=== PATIENT | female | born 1955 | race African-American/Black ===

== ENCOUNTER 2017-11-24 12:39 | Outpatient (CLI) | payer BC ==
--- NOTE | 2017-11-24 14:12 | MMO ---
BILATERAL SCREENING MAMMOGRAM: History: 62-year-old female for screening mammography. Comparison: 06-25-16, 10-12-09 FINDINGS: Bilateral MLO and CC view of the breasts show predominately fatty replaced breast parenchyma. There i s a stable nodularity in the upper outer right breast which may represent an intermamillary lymph nod e. There is no evidence of suspicious mass, suspicious cluster of microcalcifications, or area of arc hitectural distortion. This study is interpreted with the assistance of computer aided detection. IMPRESSION: BIRADS category 2 - benign findings. Annual screening mammography is recommended. POS: [facility]
== END 2017-11-24 12:40 | disposition home or self-care (01) ==
LOC: SCSMAMMO 12:39
PROVIDERS: ATTEND Family Medicine
DX: Z12.31 Encounter for screening mammogram for malignant neoplasm of breast (principal)
CPT/HCPCS: 77067

== ENCOUNTER 2018-07-09 13:04 | Outpatient (CLI) | payer BC ==
--- NOTE | 2018-07-09 14:51 | RAD ---
RIGHT KNEE FOUR VIEWS: History: Posterior right knee pain. FINDINGS: Degenerative changes are seen manifested by osteophyte formation and joint space narrowing, predomina tely in the medial femoral and patellar femoral compartments. No fracture, dislocation, or bony destruction is identified. IMPRESSION: Right knee osteoarthritis. POS: [facility]
--- NOTE | 2018-07-09 14:56 | RAD ---
LEFT KNEE FOUR VIEWS: History: Left knee pain. FINDINGS: There are mild degenerative changes in the left knee. No fracture, dislocation, or bony destruction i s seen. IMPRESSION: Mild left knee osteoarthritis. POS: [facility]
== END 2018-07-09 13:05 | disposition home or self-care (01) ==
LOC: RAD 13:04
PROVIDERS: ATTEND Family Medicine
DX: M25.561 Pain in right knee (principal); M25.562 Pain in left knee; M17.0 Bilateral primary osteoarthritis of knee

== ENCOUNTER 2018-12-03 12:52 | Outpatient (CLI) | payer BC ==
--- NOTE | 2018-12-03 14:56 | MMO ---
Bilateral MAMMO Bilat Screen [facility]. CLINICAL HISTORY: Patient is 63 years old and is seen for screening. The patient has the following family history of breast cancer: aunt and cousin female. The patient has no personal history of cancer. VIEWS: The views performed were: bilateral craniocaudal and bilateral mediolateral oblique. FILMS COMPARED: The present examination has been compared to prior imaging studies performed at [facility] on 10/12/2009, 06/25/2016 and 11/24/2017. This study has been interpreted with the assistance of computer-aided detection. MAMMOGRAM FINDINGS: The breasts are almost entirely fat. There is a stable intramammary lymph node seen in the right breast. There are no suspicious masses, suspicious calcifications, or new areas of architectural distortion. IMPRESSION: THERE IS NO MAMMOGRAPHIC EVIDENCE OF MALIGNANCY. A ROUTINE FOLLOW-UP MAMMOGRAM IN 1 YEAR IS RECOMMENDED. ACR BI-RADS Category 2 - Benign finding MAMMOGRAPHY NOTE: 1. A negative mammogram report should not delay a biopsy if a dominant of clinically suspicious mass is present. 2. Approximately 10% to 15% of breast cancers are not detected by mammography. 3. Adenosis and dense breasts may obscure an underlying neoplasm.
== END 2018-12-03 12:53 | disposition home or self-care (01) ==
LOC: SCSMAMMO 12:52
PROVIDERS: ATTEND Family Medicine
DX: Z12.31 Encounter for screening mammogram for malignant neoplasm of breast (principal); Z80.3 Family history of malignant neoplasm of breast
CPT/HCPCS: 77067

== ENCOUNTER 2020-05-01 08:22 | Outpatient (CLI) | payer MEDICARE | END 2020-05-01 08:23 | disposition home or self-care (01) | LOC: DTY/OP 08:22 | PROVIDERS: ATTEND Specialist | DX: Z01.818 Encounter for other preprocedural examination (principal); E66.01 Morbid (severe) obesity due to excess calories | CPT/HCPCS: 97802 ==

== ENCOUNTER 2020-05-26 13:43 | Outpatient (CLI) | payer MEDICARE ==
--- NOTE | 2020-05-26 14:08 | MMO ---
Bilateral MAMMO Bilat Screen [facility]. CLINICAL HISTORY: Patient is 65 years old and is seen for screening. The patient has the following family history of breast cancer: aunt and cousin female. The patient has no personal history of cancer. VIEWS: The views performed were: bilateral craniocaudal with tomosynthesis and bilateral mediolateral oblique with tomosynthesis. FILMS COMPARED: The present examination has been compared to prior imaging studies performed at [facility] on 10/12/2009, 06/25/2016, 11/24/2017 and 12/03/2018. This study has been interpreted with the assistance of computer-aided detection. MAMMOGRAM FINDINGS: There are scattered fibroglandular densities. There is a stable intramammary lymph node seen in the right breast. There are no suspicious masses, suspicious calcifications, or new areas of architectural distortion. IMPRESSION: THERE IS NO MAMMOGRAPHIC EVIDENCE OF MALIGNANCY. A ROUTINE FOLLOW-UP MAMMOGRAM IN 1 YEAR IS RECOMMENDED. THE RESULTS OF THIS EXAM WERE SENT TO THE PATIENT. ACR BI-RADS Category 2 - Benign finding MAMMOGRAPHY NOTE: 1. A negative mammogram report should not delay a biopsy if a dominant of clinically suspicious mass is present. 2. Approximately 10% to 15% of breast cancers are not detected by mammography. 3. Adenosis and dense breasts may obscure an underlying neoplasm. Reported by: JENNIFER GREGORY MD Electonically Signed: [id number]
== END 2020-05-26 13:44 | disposition home or self-care (01) ==
LOC: BICMAMMO 13:43
PROVIDERS: ATTEND Family Medicine
DX: Z12.31 Encounter for screening mammogram for malignant neoplasm of breast (principal); Z80.3 Family history of malignant neoplasm of breast
CPT/HCPCS: 77063; 77067

== ENCOUNTER 2020-07-03 06:36 | Outpatient (CLI) | payer MEDICARE ==
[2020-07-04 06:30] LABS: SARS-CoV-2 MS2 Positive; SARS-CoV-2 N Gene Negative; SARS-CoV-2 S Gene Negative; SARS-CoV-2 by NAA Not Detected (NotDetected); SARS-CoV-2 orf1ab Negative
== END 2020-07-03 06:37 | disposition home or self-care (01) ==
LOC: LABBT 06:36
PROVIDERS: ATTEND Specialist
DX: E66.01 Morbid (severe) obesity due to excess calories (principal); E11.9 Type 2 diabetes mellitus without complications; E78.5 Hyperlipidemia, unspecified; Z20.828 Contact with and (suspected) exposure to other viral communicable diseases
CPT/HCPCS: 87635; U0003

== ENCOUNTER 2020-07-03 11:30 | Inpatient (IN) | payer MEDICARE ==
[2020-07-05 09:48] VITALS: BMI 37.3
[2020-07-06] MEDS ORDERED: Scopolamine 1.5 mg/72 hour Patch ONE (08:57)
[2020-07-06] MEDS ORDERED: Ketorolac Tromethamine 30 MG/ML VIAL ONE (08:57)
[2020-07-06] MEDS ORDERED: cefOXitin Sodium/Dextrose 2 GM/50 ML BAG ONE (08:57)
[2020-07-06] MEDS ORDERED: Acetaminophen 500 MG TAB ONE (08:57)
[2020-07-06] MEDS ORDERED: Heparin 5,000 UNITS/ML VIAL ONE (08:57)
[2020-07-06] MEDS ORDERED: Ondansetron HCl/PF 4 MG/2 ML Vial IVP PRN ×2 (09:25→13:13)
[2020-07-06] MEDS ORDERED: Midazolam HCl 2 mg/2 ml Vial ONE ×2 (09:29→10:30)
[2020-07-06] MEDS ORDERED: Bupivacaine 0.25% HCL 30 ML VIAL ONE (09:32)
[2020-07-06] MEDS ORDERED: Lidocaine 1% w/Epinephrine 1:100K 20 ML VIAL ONE (09:32)
[2020-07-06] MEDS ORDERED: Fentanyl 250 MCG/5 ML VIAL ONE (10:29)
[2020-07-06] MEDS ORDERED: Midazolam HCl 5 mg/5 ml Vial ONE (10:29)
[2020-07-06] MEDS ORDERED: Metoclopramide HCl 10 MG/2 ML VIAL ONE (10:41)
[2020-07-06] MEDS ORDERED: Glycopyrrolate 0.2 MG/ML 5 ML SYRINGE ONE (10:41)
[2020-07-06] MEDS ORDERED: Ondansetron PF 4 MG/2 ML Vial ONE (10:41)
[2020-07-06] MEDS ORDERED: PHENYLEPHRINE-NS 100 MCG/ML 10 ML SYRINGE ONE (10:41)
[2020-07-06] MEDS ORDERED: Rocuronium Bromide 10 MG/ML (10ML VIAL) ONE (10:41)
[2020-07-06] MEDS ORDERED: PROPOFOL 200 MG/20 ML VIAL ONE (10:41)
[2020-07-06] MEDS ORDERED: Lidocaine 1% PF 5 ML VIAL ONE (10:41)
[2020-07-06] MEDS ORDERED: ePHEDrine 50 MG/ML VIAL ONE (10:41)
[2020-07-06] MEDS ORDERED: Promethazine HCl 25 MG/ML VIAL IM PRN ×2 (13:13→13:45)
[2020-07-06] MEDS ORDERED: Promethazine HCl 25 MG/ML VIAL SLOW IVP PRN (13:13)
[2020-07-06] MEDS ORDERED: HYDROmorphone 2 MG/ML VIAL SLOW IVP PRN (13:13)
[2020-07-06] MEDS ORDERED: Ondansetron PF 4 MG/2 ML Vial IVP PRN (13:45)
[2020-07-06] MEDS ORDERED: diphenhydrAMINE 50 MG/ML VIAL IVP PRN (13:45)
[2020-07-06] MEDS ORDERED: Ketorolac Tromethamine 30 MG/ML VIAL IVP SCH (13:45)
[2020-07-06] MEDS ORDERED: Hydrocodone-Acetamin 15 ML UDCUP PO PRN (13:45)
[2020-07-06] MEDS ORDERED: hydrALAZINE 20 MG/ML VIAL SLOW IVP PRN (13:45)
[2020-07-06] MEDS ORDERED: Dextrose 5% in Water 1,000 ML IV PRN (13:45)
[2020-07-06] MEDS ORDERED: Morphine 2 MG/ML VIAL SLOW IVP PRN (13:45)
[2020-07-06] MEDS ORDERED: Morphine 4 MG/ML VIAL SLOW IVP PRN (13:45)
[2020-07-06] MEDS ORDERED: Dextrose 50% Abboject 50 ML SYRINGE SLOW IVP PRN (13:45)
[2020-07-06] MEDS ORDERED: Fentanyl 100 MCG/2 ML VIAL ONE (14:16)
[2020-07-06] MEDS: Ketorolac Tromethamine 30 MG/ML VIAL IVP SCH ×2 (15:56→20:45)
[2020-07-06] MEDS: D5 1/2 NS w/20 mEq KCL 1,000 ML IV SCH ×2 (15:57→20:46)
[2020-07-06] MEDS ORDERED: Enoxaparin Sodium 40 MG/0.4 ML SYRINGE SC SCH (21:00)
[2020-07-06] MEDS ORDERED: Atorvastatin Calcium 10 MG TAB PO SCH (21:00)
[2020-07-07] MEDS: Ketorolac Tromethamine 30 MG/ML VIAL IVP SCH ×2 (04:40→09:04)
[2020-07-07 05:46] LABS: #Monocytes 0.6 thou/uL (0.11-0.59); #Neutrophils 6.2 thou/uL (1.40-6.50); %Basophils 0.1 % (0.0-1.0); %Eosinophils 0.1 % (0.0-10.0); %Lymphocytes 13.2 % (21.0-51.0); %Neutrophils 79.5 % (42.0-75.0); Hemoglobin 11.2 g/dL (12.0-16.0); Mean Corpuscular HGB CONC 34.5 g/dL (32.0-36.0); Mean Corpuscular Hemoglobin 31.6 pg (27.0-31.0); Mean Corpuscular Volume 91.5 fL (78.0-98.0); Platelet Count 195 thou/uL (130-400); RBC Distribution Width 11.3 % (11.5-14.5); Red Blood Cell (RBC) Count 3.54 mill/uL (4.20-5.40); White Blood Cell (WBC) Count 7.9 thou/uL (4.8-10.8)
[2020-07-07 06:08] LABS: Anion Gap 13 mmol/L (10-20); BUN (Urea Nitrogen) 7 mg/dL (9.8-20.1); Calc. Creatinine Clearance 109 mL/min (70-130); Calcium 8.5 mg/dL (7.8-10.44); Carbon Dioxide 25 mmol/L (23-31); Chloride 105 mmol/L (98-107); Glucose 149 mg/dL (80-115); Potassium 3.6 mmol/L (3.5-5.1); Sodium 139 mmol/L (136-145)
--- NOTE | 2020-07-07 08:24 | PDOC.GSPN ---
Surgery Progress Note: Subj - Subjective Narrative: Ms. Avalos is a 65 y.o. F POD1 laparoscopic hiatal hernia repair and sleeve gastrectomy. She is tired and sore this morning. Also reports feeling nauseous last night with one bout of non-bilious, non-bloody emesis; reports that the nausea has since mostly subsided. She has been urinating frequently and has two episodes of incontinence last night because she was unable to make it to the restroom in time. She has been tolerating her clear liquid diet well. She has ambulated twice and has been using her incentive spirometer regularly. She has not passed gas or had a bowel movement yet. She denies shortness of breath, chest pain, dizziness, and headaches. Surgery Progress Note: Obj - Vital signs Vital signs: Vital Signs - Most Recent Temp Pulse Resp BP Pulse Ox 98.3 F 88 18 153/90 H 91 L 07/07/20 03:56 07/07/20 03:56 07/07/20 03:56 07/07/20 03:56 07/07/20 03:56 - Physical Exam General: moderate pain Cardiovascular: regular rate and rhythm Respiratory: clear to auscultation, normal expansion, normal respiratory effort, breath sounds present Abdomen: soft, nondistended, decreased bowel sounds, appropriately tender Psychiatric: memory intact Wound: healing well. negative: drainage, erythma/edema Surgery Progress Note: Results - Labs Result Diagrams: 07/07/20 05:29 07/07/20 05:29 Lab results: Laboratory Results - last 12 hr 07/06/20 07/07/20 07/07/20 21:06 05:15 05:29 WBC RBC Hgb Hct MCV MCH MCHC RDW Plt Count MPV Neutrophils % Lymphocytes % Monocytes % Eosinophils % Basophils % Neutrophils # Lymphocytes # Monocytes # Eosinophils # Basophils # Sodium 139 Potassium 3.6 Chloride 105 Carbon Dioxide 25 Anion Gap 13 BUN 7 L Creatinine 0.84 Estimated GFR (MDRD) 82 Glucose 149 H POC Glucose 184 H 130 H Calcium 8.5 07/07/20 05:29 WBC 7.9 RBC 3.54 L Hgb 11.2 L Hct 32.3 L MCV 91.5 MCH 31.6 H MCHC 34.5 RDW 11.3 L Plt Count 195 MPV 7.0 L Neutrophils % 79.5 H Lymphocytes % 13.2 L Monocytes % 7.0 Eosinophils % 0.1 Basophils % 0.1 Neutrophils # 6.2 Lymphocytes # 1.0 L Monocytes # 0.6 H Eosinophils # 0.0 Basophils # 0.0 Sodium Potassium Chloride Carbon Dioxide Anion Gap BUN Creatinine Estimated GFR (MDRD) Glucose POC Glucose Calcium Surgery Progress Note: A/P - Plan Plan: Ms. Avalos is a 65 y.o. F POD 1 laparoscopic hiatal hernia repair and sleeve gastrectomy. She is doing well overall today and her nausea from last night has greatly subsided. - Advance to full liquid diet - Reduce IV fluid rate to 70mls/hr - Give Zofran as needed for nausea - Continue pain management - Continue DVT prophylaxis: ambulation, SCDs, enoxaparin - Continue incentive spirometry - Discharge home later today
[2020-07-07] MEDS ORDERED: metFORMIN 500 MG TAB PO SCH (09:00)
[2020-07-07] MEDS ORDERED: Alogliptin 6.25 MG TAB PO SCH (09:00)
[2020-07-07] MEDS ORDERED: Pantoprazole 40 MG VIAL IVP SCH (09:00)
[2020-07-07] MEDS ORDERED: Losartan 25 MG TAB PO SCH (09:00)
[2020-07-07] MEDS ORDERED: Amlodipine 10 MG TAB PO SCH (09:00)
[2020-07-07] MEDS: D5 1/2 NS w/20 mEq KCL 1,000 ML IV SCH ×2 (09:05→14:24)
[2020-07-07 12:11] VITALS: BP 155/88; TEMP 98.4
--- NOTE | 2020-07-10 14:55 | OP ---
DATE OF PROCEDURE: 07/06/2020 PREOPERATIVE DIAGNOSIS: Morbid obesity. POSTOPERATIVE DIAGNOSIS: Morbid obesity with a substantial hiatal hernia. OPERATIONS PERFORMED: 1. Laparoscopic vertical sleeve gastrectomy using the ViSiGi device. 2. Repair of paraesophageal hiatal hernia. POWER EQUIPMENT [employer]CHNOLOGY INSTRUCTOR: Gris Drake, medical student. INDICATIONS: The patient is a 65-year-old black female. She is morbidly obese and has undergone evaluation and education to prepare for a vertical sleeve gastrectomy. DESCRIPTION OF OPERATION: Informed consent was obtained. The patient was taken to the operating room where general endotracheal anesthesia was obtained with the patient in supine position. Abdomen was prepped with ChloraPrep and draped in sterile fashion. Local anesthetic was infiltrated before each incision was created using a mixture of 1% lidocaine with epinephrine and 0.25% Marcaine. A 5-mm supraumbilical incision was created, through which a Veress needle was passed into peritoneal cavity and pneumoperitoneum was established using carbon dioxide up to pressure of 15 mmHg. A 5-mm trocar port was passed through the same incision and laparoscopic camera was passed through this port. Under direct vision, 4 additional ports were placed including bilateral subcostal 5-mm ports, a 12-mm right paramedian port, and a 15-mm left paramedian port. A 5-mm incision was created in the epigastrium, through which a Belinda retractor was used to elevate the left lobe of the liver. Immediately upon doing this, it was evident that the patient had a substantial hiatal hernia. There was a reasonable volume of upper stomach herniated through this into the mediastinum. Attention was turned to the pylorus. This was identified, and beginning 5 cm proximal to the pylorus, the greater curve of the stomach was cleared off all fatty and vascular tissue using the LigaSure device. In an ascending fashion, the short gastric vessels were divided as well. As I approached the superior aspect of the stomach, the left angie of the diaphragm was cleared. I incised the peritoneum around the hiatus, beginning on the left and extended around to the anterior side. From the right side, the right angie of the diaphragm was dissected as well. I was then able to dissect up into the mediastinum, clearing the esophagus for several centimeters. All dissection was carried out with the LigaSure device. I then repaired the hiatal defect using 3 interrupted sutures of 0 Ethibond, each placed with a felt pledget on either side of the crura. The ViSiGi device had been placed at the beginning of the case and this was used as a bougie to calibrate the opening. There was still ample opening around the esophagus with the hiatal closure. The ViSiGi device was then positioned at the pylorus and placed to suction. This was then used as a bougie to calibrate the gastrectomy. The sleeve gastrectomy was performed with a series of fires of the Eclectic stapler, began with a green load followed by a gold load and then several blue loads. Each of these utilized the adhesive buttress strip to assist with hemostasis. Attention was paid to avoid narrowing the sleeve at the incisura or to narrow the gastroesophageal junction. After the stomach was completely removed, the sleeve was inspected to make sure it was airtight by insufflating the ViSiGi while the sleeve and the staple line were under water. There was no evidence of an air leak. There was no twisting of the sleeve. All irrigant was aspirated. The stomach was removed through the 15-mm port site and the fascia was closed with 0 Vicryl suture using a GraNee needle. All ports and instruments were removed under direct vision. Pneumoperitoneum was carefully evacuated. 0.25% Marcaine with epinephrine was infiltrated at the port site. Skin edge was approximated with 4-0 Monocryl subcuticular suture. Dermabond was placed externally. There were no complications. The patient tolerated the procedure well and was taken to recovery room in stable condition. Job ID: [id number]
== END 2020-07-07 14:20 | disposition home or self-care (01) | DRG 621 ==
LOC: SURG A 07-06 08:33 → SJJU 07-06 15:37
PROVIDERS: ADMIT Specialist; ATTEND Specialist
PROC: 0DB64Z3 Excision of Stomach, Percutaneous Endoscopic Approach, Vertical (ICD-10-PCS; principal; 2020-07-06)
PROC: 0BQT4ZZ Repair Diaphragm, Percutaneous Endoscopic Approach (ICD-10-PCS; 2020-07-06)
DX: E66.01 Morbid (severe) obesity due to excess calories (principal); Z20.828 Contact with and (suspected) exposure to other viral communicable diseases; K44.9 Diaphragmatic hernia without obstruction or gangrene; I10 Essential (primary) hypertension; E78.5 Hyperlipidemia, unspecified; M54.5 Low back pain; G89.29 Other chronic pain; M19.90 Unspecified osteoarthritis, unspecified site; Z79.899 Other long term (current) drug therapy
CPT/HCPCS: 36415; 36416; 77080; 80048; 85025; 87635; 88307; 88312; 99213; C9113; G0463; J0694; J1644; J1650; J1885; J2250; J2405; J2704; J2765; J3010; J3480; J3490; S0020; U0003

== ENCOUNTER 2020-07-04 12:59 | Outpatient (CLI) | payer MEDICARE ==
--- NOTE | 2020-07-04 14:00 | BD ---
DEXA BONE MINERAL DENSITY STUDY: HISTORY: Osteoporosis screening. COMPARISON: None. FINDINGS: Lumbar Spine: BMD (g/cm2) L1 1.028 T-Score: 0.3 2.0 L2 1.077 T-Score: 0.4 2.3 L3 1.170 T-Score: 0.8 2.7 L4 1.229 T-Score: 1.5 3.5 L1-L4 1.130 T-Score: 0.8 2.6 Femoral Neck: 0.737 T-Score: -1.0 0.6 Total Femur: 0.862 T-Score: -0.7 0.6 WHO classification normal. Impression: Normal bone mineral density. POS: [facility]
== END 2020-07-04 13:00 | disposition home or self-care (01) ==
LOC: BICMAMMO 12:59
PROVIDERS: ATTEND Family Medicine
DX: N95.1 Menopausal and female climacteric states (principal); E66.9 Obesity, unspecified; M85.859 Other specified disorders of bone density and structure, unspecified thigh
CPT/HCPCS: 77080

== ENCOUNTER 2021-07-24 10:51 | Outpatient (CLI) | payer MEDICARE | END 2021-07-24 10:52 | disposition home or self-care (01) | LOC: BICMAMMO 10:51 | PROVIDERS: ATTEND Family Medicine | DX: Z12.31 Encounter for screening mammogram for malignant neoplasm of breast (principal) | CPT/HCPCS: 77063; 77067 ==

== ENCOUNTER 2021-11-23 12:49 | Outpatient (CLI) | payer MEDICARE | END 2021-11-23 12:50 | disposition home or self-care (01) | LOC: BICRAD 12:49 | PROVIDERS: ATTEND Family Medicine | DX: M54.2 Cervicalgia (principal); G89.29 Other chronic pain; M47.812 Spondylosis without myelopathy or radiculopathy, cervical region | CPT/HCPCS: 72040 ==

== ENCOUNTER 2023-06-09 06:42 | Emergency (ER) | payer OTHER ==
[2023-06-09] MEDS ORDERED: HYDROcodone/Acetaminophen 5/325 mg Tablet ONE (07:29)
== END 2023-06-09 08:15 | disposition home or self-care (01) ==
LOC: ERS 06:42
DX: S00.03XA Contusion of scalp, initial encounter (principal); S80.01XA Contusion of right knee, initial encounter; S40.011A Contusion of right shoulder, initial encounter; I10 Essential (primary) hypertension; E11.9 Type 2 diabetes mellitus without complications; W01.0XXA Fall on same level from slipping, tripping and stumbling without subsequent striking against object, initial encounter
CPT/HCPCS: 70450; 72125

== ENCOUNTER 2024-01-06 13:16 | Outpatient (CLI) | payer MEDICARE, OTHER | END 2024-01-06 13:17 | disposition home or self-care (01) | LOC: BICMAMMO 13:16 | PROVIDERS: ATTEND Family Medicine | DX: Z12.31 Encounter for screening mammogram for malignant neoplasm of breast (principal); Z13.820 Encounter for screening for osteoporosis; Z78.0 Asymptomatic menopausal state; M81.0 Age-related osteoporosis without current pathological fracture; M85.89 Other specified disorders of bone density and structure, multiple sites | CPT/HCPCS: 77063; 77067; 77080 ==

== ENCOUNTER 2025-04-22 15:04 | Outpatient (CLI) | payer OTHER | END 2025-04-22 15:05 | disposition home or self-care (01) | LOC: BICRAD 15:04 | PROVIDERS: ATTEND Family Medicine | DX: M25.562 Pain in left knee (principal); M25.462 Effusion, left knee; Z96.652 Presence of left artificial knee joint ==